=== PATIENT | female | born 1950 | race Caucasian/White ===

== ENCOUNTER 2024-06-22 23:35 | Emergency (ER) | payer MEDICARE, OTHER, SELFPAY ==
[2024-06-22 23:53] VITALS: BP 159/84
--- NOTE | 2024-06-23 00:53 | ED.GENMED ---
History of Present Illness
General
Chief Complaint: Skin Problem
Source: patient
Exam Limitations: none
Time Seen by Provider: 06/23/24 00:24
History of Present Illness
History of Present Illness:
This is a 73 year old female that comes in with multiple complaints. States that for the past couple of weeks she has had itching of the left arm. [place]. States that she als has low back
pain. States that this has been going on for over 2 weeks. States that she has felt SOB, nauseated last week, she is constipated, has a headache and occasionally dizzy. States that she has an appointment with the PCP on Monday. Denies any fever,
chills, chest pain, abd pain, vomiting, urinary burning.
Past History
Past History
ED Past Medical History: HTN, Hypercholesterolemia, IDDM and Other (Back pain, Neuropathy, Numbness arms and legs, Sciatica, Sleep apnea, PNA, Fatty liver, Iron def anemia, )
ED Past Surgical History: Gynecological (D&C), Orthopedic (Lumbar fusion, right total knee replacement, Left shoulder replaced) and Other (Cataracts)
Social History
Tobacco: Non-smoker
Alcohol: Occasional
Drug: None
Personal:
Living: with family
Employment: Retired
Family History
Family History: Other (Noncontributory)
Review of Systems
Review of Systems
All Other Systems: ROS reviewed and negative except as documented in HPI and ROS
Constitutional: Reports no symptoms; Denies fever or chills
EENT: Reports no symptoms
Respiratory: Reports trouble breathing (occasional); Denies cough
Cardiac: Denies chest pain
ABD/GI: Reports nausea and constipated; Denies abdominal pain, vomiting or diarrhea
: Reports no symptoms; Denies dysuria, frequency or urgency
Musculoskeletal: Reports back pain (Low back pain)
Skin: Reports itching (Left arm)
Neurological: Reports dizzy (occasional) and headache
Psychiatric: Reports no symptoms
Phy Exam
General Physical Exam
General Presentation: well appearing (Patient walked back to room) and no apparent distress
General age: appears stated age
General Skin: warm and dry
General Habitus: normal
General Mental: alert
General Hydration: dry mucous membranes
ENT Exam
ENT Exam: TM's normal, pharynx normal and neck supple
Eye Exam
Eye Exam: EOMI
Cardiovascular Exam
Cardiovascular Exam: regular rate/rhythm, no edema and normal peripheral pulses
Pulmonary Exam
Pulmonary Exam: lungs clear, no respiratory distress, no rales, chest non tender, no crackles, no rhonchi, no wheezing and no cough
Gastrointestinal Exam
Gastrointestinal Exam: normal bowel sounds, non tender, soft, no organomegaly, no pulsatile mass and non distended
Musculoskeletal Exam
Musculoskeletal Exam: full ROM and no edema
Skin Exam
Skin Exam: normal color, warm/dry, no petechia and other (Faint papules not on the the left forearm. Scratch kenney noted with some scabbed areas. Bit kenney form sand flies noted. )
Psychiatric Exam
Psychiatric Exam: normal mood/affect
Course
Orders/Labs/Results
Orders:
Orders
06/23/24 00:39
Lumbar Spine Complete, 4 View [CR Lumbar Spine Comp Min 4 Vw*] Urgent
Comment:
Reason For Exam: Low back pain
06/23/24 01:11
CRP [C-Reactive Protein] Urgent
Complete Blood Count/With Diff Urgent
Comprehensive Metabolic Panel Urgent
06/23/24 01:12
Sed Rate [Erythrocyte Sed Rate] Stat
Urinalysis Reflex To Culture Urgent
Date Specimen was Collected: 06/23/24
Time Specimen was Collected: 00:54
Urine Microscopic Reflex Cult Urgent
Urine Culture Urgent
GINNA Source: U
Specimen Description:
Date Specimen was Collected: 06/23/24
Time Specimen was Collected: 00:54
Abnormal Lab Results
06/23/24 06/23/24
01:11 01:12
MPV 11.6 H fL
(7.4-10.4)
Abs Immat Gran (auto) 0.1 H 10^3/uL
(0-0.05)
Absolute Monos (auto) 1.0 H 10^3/uL
(0.1-0.6)
Monocytes % 9.9 H %
(1.7-9.3)
Chloride 108 H mmol/L
(98-107)
BUN 18 H mg/dl
(7-17)
Glucose 158 H mg/dl
(70-99)
Urine Ketones 1+ A
(Negative)
Leukocyte Esterase Rfl 1+ A
(Negative)
Urine WBC (Reflex) 11-15 A /HPF
(0-5)
Urine Bacteria (Reflex) Moderate A
(Negative)
06/23/24 01:11
06/23/24 01:11
Hyperglycemia. Urine positive for infection,. CRP <5.0, Sed rate normal at 5.
Vital Signs
Initial and Last Documented VS:
Initial Vital Signs
Temp Pulse Resp BP Pulse Ox
98.3 F 88 16 159/84 98
06/22/24 23:53 06/22/24 23:53 06/22/24 23:53 06/22/24 23:53 06/22/24 23:53
Last Documented Vital Signs
Temp Pulse Resp BP Pulse Ox
98.3 F 88 16 159/84 98
06/22/24 23:53 06/22/24 23:53 06/22/24 23:53 06/22/24 23:53 06/22/24 23:53
MDM/Problems Addressed
Differential Diagnosis Includes:
Chronic back pain, Bug bites,
MDM/Problems Addressed:
This is a 73 year old female that comes in with c/o left arm itching and low back pain. States that her low back pain has been over a week. States that her arm has been itching for a couple of weeks. State that she this is because of her kidneys.
[place] sand [place].
Will check labs and X-ray lumbar spine.
Back into see patient. Explained that her blood work shows very slight Dehydration. Her Inflammatory markers are normal and her urine is questionable for UTI. Will treat with Monurol. Patient to use Calamine lotion to the left arm and Benadryl for
the itching. Patient to follow up with the family doctor. Return with any concerns.
Chronic conditions affecting care: DM
Acute Exacerbation and/or Progression of Chronic Illness: DM (Neuropathy, )
*Radiology
Radiology exam reviewed: preliminary read by ED provider (lumbar spine- Degenerative changes low back with Metal noted lumbar area. )
*Pulse Oximetry
Patient hypoxic: no
*EKG
Interpreted by ED Provider?: NA
Rate: EKG- N/A
*Anesthesia Director Interpretation
Rate: Anesthesia Director- N/A
*Critical Care Note
Total Time (30-74mins, 75-104mins- exclusive of procedures): Not Applicable
ED Attending Note
-
Portions of this chart may have been created with voice recognition software.� Occasional wrong word or��sound alike� substitutions may have occurred due to the inherent limitations of voice recognition software.
Discharge Plan
Departure
Patient Disposition: Home (Routine Discharge)
Date of Disposition: 06/23/24
Time of Disposition: 02:42
Patient with high blood pressure during this ER visit?: Yes
Condition: Good
Covid-19: Not Applicable
Discharge Problem:
Acute UTI (urinary tract infection), Rash
Instructions: Skin Rash (DC), Urinary Tract Infection, Adult ED, BLOOD PRESSURE
Prescriptions:
No Action
multivitamin Tablet
1 tab PO DAILY
metformin 500 mg Tablet
500 mg PO BID
Amino Acid Capsule
1 cap PO DAILY
atorvastatin 20 mg Tablet
20 mg PO DAILY
pantoprazole 40 mg Tablet,Delayed Release (Dr/Ec)
40 mg PO MOWEFR
levothyroxine 125 mcg Tablet
125 mcg PO DAILY
zolpidem [Ambien] 10 mg Tablet
10 mg PO HSPRN PRN (Reason: SLEEP)
insulin aspart U-100 [Novolog FlexPen U-100 Insulin] 100 unit/mL (3 mL) Insulin Pen
0 unit SC AC
Patient Comments:
SLIDING SCALE WITH MEALS
Rx Instructions:
sliding scale
methylsulfonylmethane [MSM] 1,000 mg Tablet
2,000 mg PO DAILY
cholecalciferol (vitamin D3) [Vitamin D3] 25 mcg (1,000 unit) Tablet
25 mcg PO DAILY
insulin glargine [Lantus Solostar U-100 Insulin] 100 unit/mL (3 mL) Insulin Pen
24 unit SC HS
Probiotic 3 billion cell Capsule
3,000 mmu cells PO DAILY
Curcumin
1 tab PO DAILY
Turma Flex
1 tab PO DAILY
iron 30 MG
30 mg PO Q48H
magnesium hydroxide 400 mg/5 mL Suspension
30 ml PO HS Qty: 355 0RF
Rx Instructions:
Continue nightly with bowel regimen of Colace and Senna.
docusate sodium 100 mg Capsule
100 mg PO BID Qty: 30 0RF
sennosides [Senna Laxative] 8.6 mg Tablet
17.2 mg PO BID Qty: 30 0RF
acetaminophen 325 mg capsule
650 mg PO Q4H PRN (Reason: mild pain) Qty: 60 0RF
Rx Instructions:
DO NOT exceed >4000 mg daily while on Percocet.
1 Percocet tab = 325 mg of Tylenol.
gabapentin 400 mg capsule
400 mg PO TID Qty: 30 0RF
tizanidine 2 mg tablet
2 mg PO Q8H PRN (Reason: muscle spasms ) Qty: 30 0RF
Rx Instructions:
Caution with Percocet and Gabapentin - can cause drowsiness.
Take only as needed/as directed.
amlodipine 2.5 mg Tablet
2.5 mg PO DAILY Qty: 1 0RF
Rx Instructions:
HOLD if systolic blood pressure <130 while on Percocet.
melatonin 10 mg Tablet,Chewable
10 mg PO HS Qty: 0 0RF
lactulose 20 gram/30 mL solution
20 g PO BID PRN (Reason: Constipation) Qty: 1200 0RF
ondansetron 4 mg tablet,disintegrating
4 mg PO Q8H Qty: 15 0RF
benazepril 40 mg tablet
40 mg PO DAILY
Rx Instructions:
HOLD if systolic blood pressure <130 while on Percocet.
polyethylene glycol 3350 [Miralax] 17 gram/dose powder
4 g PO DAILY PRN (Reason: constipation) Qty: 119 0RF
Referrals:
Sandi Benjamin DO [Family Provider] - Call in 1-3 days for appt
Activity Restrictions/Additional Instructions:
As discussed, your blood work shows very slight Dehydration. Please increase your water intake to 8-8oz glasses daily. Your Urine is questionable for infection. You have been given a one time dose of antibiotic here that will treat any UTI. Please
use Calamine lotion to the left arm to help decrease the Itching and Benadryl 50mg every 6 hours as needed for the itching. Follow up with the family doctor for recheck. IF YOU HAVE INCREASED OR CHANGING PAIN, OR YOU HAVE ANY OTHER CONCERNS PLEASE
RETURN TO THE EMERGENCY ROOM.
Interventions
Interventions:
*Risk Screen - Suicide Last Done: 06/22/24 23:53
*General Assessment Last Done: 06/23/24 02:07
*Neglect/Abuse Screening Last Done: 06/22/24 23:53
*ED COVID-19 Vaccine History Last Done: 06/23/24 00:00
Discharge Date and Time
Print Language: CHILEAN
[2024-06-23 01:27] LABS: Urine Albumin Negative (Neg - Trace); Urine Bilirubin Negative (Negative); Urine Character Clear (Clear); Urine Color Yellow; Urine Glucose Negative (Negative); Urine Ketone 1+ (Negative); Urine Leukocyte 1+ (Negative); Urine Nitrite Negative (Negative); Urine Occult Blood Negative (Negative); Urine Specific Gravity 1.015 (<1.030); Urine Urobilinogen Negative (Neg - 1+)
[2024-06-23 01:28] LABS: % Basophils 0.6 % (0-2); % Eosinophils 5.5 % (0-6); % Immature Granulocytes 0.5 % (0-0.5); % Lymphocytes 27.8 % (20.5-51.1); % Monocytes 9.9 % (1.7-9.3); % Neutrophils 55.7 % (42.2-75.2); Absolute Basophils 0.1 10^3/uL (0-0.2); Absolute Eosinophils 0.5 10^3/uL (0-0.7); Absolute Immature Granulocytes 0.1 10^3/uL (0-0.05); Absolute Lymphocytes 2.7 10^3/uL (1.2-3.4); Absolute Neutrophils 5.4 10^3/uL (1.4-6.5); Hematocrit 42.6 % (37.0-47.0); Hemoglobin 15.1 g/dL (12.0-16.0); Mean Corp Hgb Conc. 35.4 g/dL (33.0-37.0); Mean Corpuscular Hgb 30.2 pg (27.0-31.0); Mean Corpuscular Volume 85.2 fL (81.0-99.0); Mean Platelet Volume 11.6 fL (7.4-10.4); Nucleated Red Blood Cells % 0 %; Platelet Count 220 10^3/uL (130-400); Red Cell Dist. Width 13.3 % (11.5-14.5); White Blood Cell Count 9.7 10^3/uL (4.8-10.8)
[2024-06-23 01:42] LABS: ALT (SGPT) 21 U/L (0-35); AST (SGOT) 26 U/L (14-36); Albumin 3.9 g/dl (3.5-5.0); Alkaline Phosphatase 84 U/L (38-126); Blood Urea Nitrogen 18 mg/dl (7-17); Calcium 9.3 mg/dl (8.4-10.2); Carbon Dioxide 23 mmol/L (22-30); Chloride 108 mmol/L (98-107); Glucose 158 mg/dl (70-99); Potassium 4.1 mmol/L (3.5-5.1); Sodium 136 mmol/L (135-145); Total Bilirubin 0.6 mg/dl (0.2-1.3); Total Protein 6.3 g/dl (6.3-8.2); eGFR > 60.00
[2024-06-23 01:46] LABS: C-Reactive Protein < 5.00 mg/L (0.0-10.00)
[2024-06-23 01:53] LABS: Erythrocyte Sed Rate 5 mm/hour (0-20)
[2024-06-23 01:54] LABS: Urine Red Blood Cell 0-2 /HPF (0-2)
[2024-06-23 01:55] LABS: Urine Bacteria Moderate (Negative)
[2024-06-23] MEDS: MONUROL 3 GM PO (02:45)
[2024-06-23] MEDS: BENADRYL 50 MG PO (02:45)
== END 2024-06-23 02:52 | disposition home or self-care (01) ==
LOC: EMR 23:35
PROVIDERS: Clinical Nurse Specialist Family Health; EMERGENCY PHYSICIAN Emergency Medicine; FAMILY PHYSICIAN Internal Medicine
DX: N39.0 Urinary tract infection, site not specified (principal); R21 Rash and other nonspecific skin eruption; I10 Essential (primary) hypertension; E11.40 Type 2 diabetes mellitus with diabetic neuropathy, unspecified
CPT/HCPCS: 99284; 72110; 80053; 81003; 81015; 85025; 85652; 86140; 87086